=== PATIENT | male | born 1995 | race Two or more races ===

== ENCOUNTER 2019-12-26 18:45 | Emergency (ER) | payer MEDICAID ==
[~2019-12-26] VITALS: Ht 177.8 cm; Wt 56.7 kg
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
--- NOTE | 2019-12-26 20:20 | NUR ---
Patient discharged to home in stable condition. Written and verbal after care instructions given. Patient verbalizes understanding of instruction.Pt ambulatory with a steady gait
[2019-12-26] MEDS ORDERED: ACETAMINOPHEN ES 500 MG TABLET ONE (20:22)
[2019-12-26 20:25] VITALS: BP 132/79
[2019-12-26] MEDS ORDERED: ACETAMINOPHEN 325 MG TABLET PO ONE (20:30)
== END 2019-12-26 20:25 | disposition home or self-care (01) ==
LOC: ER 18:59
DX: S16.1XXA Strain of muscle, fascia and tendon at neck level, initial encounter (principal); S09.8XXA Other specified injuries of head, initial encounter; R51 Headache; V49.59XA Passenger injured in collision with other motor vehicles in traffic accident, initial encounter; Y93.89 Activity, other specified; Y92.488 Other paved roadways as the place of occurrence of the external cause; Y99.8 Other external cause status
CPT/HCPCS: 70450; 72125; 99285; L0172